=== PATIENT | male | born 1955 | race Caucasian/White ===

== ENCOUNTER → 2023-09-30 12:12 | Outpatient (REF) | payer MEDICARE, OTHER, SELFPAY | LOC: HWRAD 12:12 | PROVIDERS: ATTENDING PHYSICIAN Nurse Practitioner Adult Health; FAMILY PHYSICIAN Family Medicine | DX: F17.210 Nicotine dependence, cigarettes, uncomplicated (principal) | CPT/HCPCS: 71271 ==

== ENCOUNTER → 2024-01-13 11:18 | Outpatient (REF) | payer MEDICARE, OTHER, SELFPAY | LOC: HWRAD 11:18 | PROVIDERS: ATTENDING PHYSICIAN Internal Medicine Critical Care Medicine; FAMILY PHYSICIAN Family Medicine | DX: R91.1 Solitary pulmonary nodule (principal) | CPT/HCPCS: 71250 ==

== ENCOUNTER 2024-08-11 14:47 | Inpatient (IN) | payer MEDICARE, OTHER, SELFPAY ==
[2024-08-11] VITALS (13 sets, daily range): BP systolic 122–168; BP diastolic 70–95; BMI 26.1
--- NOTE | 2024-08-11 11:01 | ED.GENMED ---
History of Present Illness
General
Chief Complaint: Breathing Problem
Source: patient
Exam Limitations: none
Time Seen by Provider: 08/11/24 10:11
Nursing documentation reviewed up to this point in time: agreed with
History of Present Illness
History of Present Illness:
Patient with history of COPD and current smoker, presents ED secondary to worsening cough and shortness of breath over the past 2 weeks, along with decreased appetite. As patient has had pneumonia in the past, spoke with primary care physician who
prescribed antibiotics last week, which he has taken along with prednisone, without improvement in symptoms. Patient reports intermittent fever up to 101. Denies chest pain. Denies back pain. Denies leg pain or swelling. Denies headache.
Denies nausea, vomiting, or diarrhea. Denies recent travel.
Past History
Past History
ED Past Medical History: COPD; Negative CAD or HTN
ED Past Surgical History: None
Social History
Tobacco: Smoker
Alcohol: Occasional
Drug: None
Personal: Single
Living: with family
Review of Systems
Review of Systems
Allergies reviewed?: Yes
All Other Systems: ROS reviewed and negative except as documented in HPI and ROS
Constitutional: Reports fever
EENT: Reports no symptoms
Respiratory: Reports cough and trouble breathing
Cardiac: Reports no symptoms
ABD/GI: Reports no symptoms
Musculoskeletal: Reports no symptoms
Skin: Reports no symptoms
Neurological: Reports no symptoms
Phy Exam
Physical Exam
Physical Exam:
Physical Exam
General: moderate respiratory distress, acutely ill. afebrile
Head: nc/at. eomi
Neck: supple. normal range of motion.
Heart: s1/s2 regular rate and rhythm, no murmur.
Lungs: moderate respiratory distress. diffuse wheezing bilaterally
Abdomen: normal bowel sounds. not tender.
Neuro: alert and oriented x 3. no focal neurological deficits
Skin: no rash
Psychiatric: well kept. interactive and cooperative
Extremities: no edema. no calf tenderness.
Scores
Heart Failure Risk
Heart Failure Risk Score: Not Applicable
Sepsis
Sepsis Screening
Sepsis Assessment: Sepsis
Sepsis Screen
Sepsis Screen: Sepsis
Date: 08/11/24
Time: 17:08
Course
Orders/Labs/Results
Orders:
Orders
08/11/24 10:05
Electrocardiogram (*1) Urgent
Reason for Study: Shortness of Breath
EKG- Treatment ONCE
08/11/24 10:52
CR Chest - 2 Views Urgent
Comment:
Reason For Exam: cough/sob
08/11/24 10:54
0.9% Sodium Chloride 500 ml [Nss] 500 ml IV BOLUS
Albuterol Nebs [Ventolin Nebules] 2.5 mg INH R NOW STA
Guaifenesin/Codeine Solution [Robitussin AC] 10 ml PO NOW STA
Ipratropium/Albuterol Sulfate [Duoneb] 3 ml INH R NOW STA
08/11/24 11:02
COVID-19 Antigen Urgent
Source: Nasal Swab
Complete Blood Count/With Diff Urgent
Comprehensive Metabolic Panel Urgent
Lactic Acid Q4H
Comment: CANCEL 2nd LACTIC ACID IF 1st LACTIC ACID IS LESS THAN 2
Magnesium Urgent
Influenza A+B Rapid Molecular Urgent
LO Source: Nasal Swab
Specimen Description:
Respiratory Syncytial Virus Urgent
LO Source: Nasal Swab
Specimen Description:
Date Specimen was Collected: 08/11/24
Time Specimen was Collected: 10:56
08/11/24 11:04
Dexamethasone Sod Phosphate [Decadron] 6 mg IV NOW STA
08/11/24 14:10
Admit/Transfer Patient As Directed
Co-Sign Provider:
Level of Care: Inpatient admission
Assign to:: Medical/Surgical
Physician / Group: [facility]
Diagnosis: FLu A+, copd exacerbation with PNa and hypoxia
Reason for Hospitalization: FLu A+, copd exacerbation with PNa and hypoxia
Expected length of stay greater than two midnights?: Yes
ELOS- Estimated Length of Stay in days: 5
I certify the patient meets the requirements for IP care: Yes
Code Status As Directed
Resuscitation Status: Full Code
08/11/24 14:17
PRN Pain Medication Management As Directed
May give lesser potent ordered pain med per pt: Yes
preference::
Protocol:: Medication orders for pain may be administered in a
manner that supports deferring to patient preference
when the pt is:
- Requesting an ordered lesser potent pain medication.
Least to most potent pain medications are defined
as: acetaminophen < NSAID < tramadol < opioids
(morphine, oxycodone, hydromorphone).
- Requesting a lesser dose of the same medication IF
ORDERED.
- Requesting a less intrusive route of administration
if both routes are prescribed by the provider (PO <
IV).
08/11/24 15:26
Respiratory Culture/Gram Stain Urgent
LO Source: Sputum
Specimen Description:
Date Specimen was Collected: 08/11/24
Time Specimen was Collected: 15:09
Abnormal Lab Results
08/11/24
11:02
RBC 4.56 L 10^6/uL
(4.70-6.10)
MCH 32.0 H pg
(27.0-31.0)
Abs Immat Gran (auto) 0.1 H 10^3/uL
(0-0.05)
Absolute Monos (auto) 1.5 H 10^3/uL
(0.1-0.6)
Immature Gran % 0.9 H %
(0-0.5)
Lymphocytes % 12.6 L %
(20.5-51.1)
Monocytes % 15.8 H %
(1.7-9.3)
Glucose 101 H mg/dl
(70-99)
08/11/24 11:02
08/11/24 11:02
Vital Signs
Initial and Last Documented VS:
Initial Vital Signs
Temp Pulse Resp BP Pulse Ox
100 F 111 30 135/95 90
08/11/24 09:46 08/11/24 09:46 08/11/24 09:46 08/11/24 09:46 08/11/24 09:46
Last Documented Vital Signs
Temp Pulse Resp BP Pulse Ox
97.6 F 83 15 132/82 96
08/11/24 13:46 08/11/24 16:45 08/11/24 16:45 08/11/24 16:00 08/11/24 16:45
MDM/Problems Addressed
MDM/Problems Addressed:
History and exam consistent with likely COPD exacerbation from influenza. Pulse ox improved on 2 L of oxygen via nasal cannula. Patient will be admitted for further evaluation and treatment, including continual nebulizer treatment along with IV
steroids
*Critical Care Note
Total Time (30-74mins, 75-104mins- exclusive of procedures): Not Applicable
ED Attending Note
-
Portions of this chart may have been created with voice recognition software.� Occasional wrong word or��sound alike� substitutions may have occurred due to the inherent limitations of voice recognition software.
Discharge Plan
Departure
Patient Disposition: Admit
Date of Disposition: 08/11/24
Time of Disposition: 12:15
Admit to: IMU
Presentation/result/management discussed w/ accepting MD/DO: Hospitalist
Discharge Problem:
Influenza, COPD exacerbation
Interventions
Interventions:
*Risk Screen - Suicide Last Done: 08/11/24 09:46
*General Assessment Last Done: 08/11/24 09:46
*Neglect/Abuse Screening Last Done: 08/11/24 09:46
ED- Fall Risk Assessment Last Done: 08/11/24 11:29
*ED COVID-19 Vaccine History Last Done: 08/11/24 09:46
*Nursing Disposition Last Done: 08/11/24 16:47
ED- Cardiac Assessment Last Done: 08/11/24 11:29
ED- Pulmonary Assessment Last Done: 08/11/24 11:29
[2024-08-11] MEDS: DUONEB 3 ML INH ×2 (11:17→21:01)
[2024-08-11] MEDS: VENTOLIN NEBULES 2.5 MG INH (11:17)
[2024-08-11] MEDS: DECADRON 6 MG IV (11:18)
[2024-08-11] MEDS: NSS 500 IV (11:19)
[2024-08-11] MEDS: ROBITUSSIN AC 10 ML PO (11:19)
[2024-08-11 11:20] LABS: % Basophils 0.3 % (0-2); % Immature Granulocytes 0.9 % (0-0.5); % Lymphocytes 12.6 % (20.5-51.1); % Monocytes 15.8 % (1.7-9.3); % Neutrophils 70.4 % (42.2-75.2); Absolute Immature Granulocytes 0.1 10^3/uL (0-0.05); Absolute Lymphocytes 1.2 10^3/uL (1.2-3.4); Absolute Monocytes 1.5 10^3/uL (0.1-0.6); Absolute Neutrophils 6.5 10^3/uL (1.4-6.5); Hematocrit 42.4 % (39.0-52.0); Hemoglobin 14.6 g/dL (13.0-18.0); Mean Corp Hgb Conc. 34.4 g/dL (33.0-37.0); Mean Platelet Volume 9.9 fL (7.4-10.4); Nucleated Red Blood Cells % 0 % (-); Platelet Count 165 10^3/uL (130-400); Red Blood Cell Count 4.56 10^6/uL (4.70-6.10); Red Cell Dist. Width 12.1 % (11.5-14.5); White Blood Cell Count 9.3 10^3/uL (4.8-10.8)
[2024-08-11 11:31] LABS: Lactic Acid 1.2 mmol/L (0.7-2.0)
[2024-08-11 11:37] LABS: COVID-19 Antigen Negative (Negative)
[2024-08-11 11:40] LABS: ALT (SGPT) 26 U/L (0-50); AST (SGOT) 27 U/L (17-59); Albumin 3.6 g/dl (3.5-5.0); Alkaline Phosphatase 115 U/L (38-126); Blood Urea Nitrogen 17 mg/dl (9-20); Calcium 9.2 mg/dl (8.4-10.2); Carbon Dioxide 29 mmol/L (22-30); Chloride 101 mmol/L (98-107); Estimated Creatinine Clearance 109 ml/min; Glucose 101 mg/dl (70-99); Potassium 3.9 mmol/L (3.5-5.1); Sodium 139 mmol/L (135-145); Total Bilirubin 0.6 mg/dl (0.2-1.3); Total Protein 6.5 g/dl (6.3-8.2); eGFR > 60.00
--- NOTE | 2024-08-11 11:53 | EDRN ---
the pt was received from the waiting room, this RN entered the pts room and the pt was 92% on 2L NC, this RN notified the provider and titrated 02 up to 4L NC and Sp02 came up to 98%, the pt has c/o SOB, PIV placed and labs were obtained and swabs
obtained, the pt was assisted into pt gown, the pts sons are currently at the pts bedside, Dr. Livingston was at the pts bedside speaking to the pt and the pts sons, the pt denies needing anything at this time, will continue to monitor the pt closely
--- NOTE | 2024-08-11 13:31 | HPS.HSE ---
Family Physician
-
Family Physician: Rasta Carmona
Chief Complaint
-
Cough x 2 weeks, intermittent fever, smoker
History of Present Illness
68-year-old male complaining of worsening cough and shortness of breath over the past 2 weeks along with decreased appetite. Today he was unable to get off the sofa and walk due to significant shortness of breath so he decided to come to the ER. He
states in the winter he always gets some kind of fluid with COPD exacerbation or pneumonia. He states he was seen by his PCP who prescribed Zithromax last week which he has been taking along with prednisone without any improvement in symptoms. He
reports he took 500mg then 250 mg x2 doses and then 40 mg of prednisone x 2 days and one 30 mg dose. He reports intermittent fevers up to 101F. He has history of COPD and is a current smoker 1 pack/day, however he states he is smoked about 3 to 4
cigarettes a day since being sick He denies sore throat, headache, recent travel, chest pain, palpitations, abdominal pain, nausea, vomiting, diarrhea, urinary symptoms. He has past medical history of COPD, Pulmonary nodulesactive smoker, erectile
dysfunction, HLD, anxiety.
Medical History
Past Medical History
Past Medical History: Reports Other
Additional Past Medical History:
COPD
Pulmonary nodules
active smoker
erectile dysfunction
HLD,
anxiety
Past Surgical History: Reports Other
Additional Past Surgical History:
Skin CA removal
Social History
Tobacco: Former Smoker (1ppd x 55 years )
Alcohol: Occasional
Drug: None
Personal:
Living: With Family
Employment: Employed (owns [employer] )
Family History
Family History: Other (mother age 49 unknown cancer, sister age 49 unknown ca, sister melanoma age 64 , father age 84 FTT)
Allergies / Home Medications
Allergies reflects when Allergies were last updated in [employer].
Home Medications with original date entered in [employer]
Allergy/Medication List:
Allergies
Allergy/AdvReac Type Severity Reaction Status Date / Time
No Known Allergies Allergy Verified 01/13/20 10:44
Home Medications
atorvastatin 20 mg tablet 20 mg PO DAILY 01/13/20
azithromycin 250 mg tablet 250 mg PO PER PKG DIR 08/11/24
fluticasone 250 mcg-salmeterol 50 mcg/dose blistr powdr for inhalation 1 inh inhalation R DAILY 08/11/24
lorazepam 0.5 mg tablet 0.5 mg PO DAILYPRN PRN anxiety 08/11/24
prednisone 10 mg tablet 10 mg PO .TAPER 08/11/24
sildenafil 100 mg tablet 100 mg PO DAILYPRN PRN ED 08/11/24
Review of Systems
-
History Source: Patient
A 12 point ROS was completed and negative except as noted: Yes
Constitutional: Reports Fever, Fatigue and Chills
EENT: Reports Sore Throat; Denies Mouth Pain, Mouth Swelling or Runny Nose
Respiratory: Reports Cough and Trouble Breathing (Wheezing)
Cardiac: Denies Chest Pain, Diaphoresis, Palpitations or Syncope
Abdomen/GI: Denies Abdominal Pain, Nausea, Vomiting, Diarrhea, Constipated, Bloody Stools or Black Stools
: Denies Dysuria, Frequency, Flank Pain, Incontinence or Difficulty Voiding
Musculoskeletal: Denies Joint Pain, Joint Swelling or Edema
Skin: Denies Itching or Rash
Neurological: Reports Weakness (generalized ); Denies Dizzy or Headache
Endocrine: Reports No Symptoms
Hematologic/Lymphatic: Reports No Symptoms
Psych: Reports Calm
Physical Exam
Vital Signs
Vital Signs
Temp Pulse Resp BP Pulse Ox
98.5 F 112 26 132/75 95
08/11/24 11:29 08/11/24 12:21 08/11/24 12:21 08/11/24 12:21 08/11/24 12:21
Physical Exam
General: Comfortable and Conversant; No Pain, Fever or Chills
HEENT: NormoCephalic, Anicteric, Moist mucous membranes, PERRLA, [place] Conjunctivae, No Ptosis and Oxygen (4 liters nc)
Respiratory: Clear (post neb treatment); No Wheezes, Rales or Rhonchi
Cardiac: S1/S2 and Regular Rhythm; No Murmur, Rub, Gallop or Peripheral Edema
Breast: Deferred by me
GI: Soft, Non Tender, Non Distended, Normal Bowel Sounds and No Hepatosplenomegaly
Rectal: Deferred by Provider
Genito-urinary: Deferred by me
Musculoskeletal: No Clubbing, No Cyanosis and No Edema
Skin: Warm and Dry; No Rash or Jaundice
Neuro: AO x 3, No Motor Deficits, Nonfocal/grossly intact, Cranial Nerves Intact and No Sensory Deficits; No Slurred Speech, Facial Droop, Tremors or Sedated
Psych: Calm
Laboratory Results
-
08/11/24 11:02
08/11/24 11:02
Laboratory Results
Lactic Acid Cancelled 08/11/24 15:00
Total Bilirubin 0.6 mg/dl (0.2-1.3) 08/11/24 11:02
AST 27 U/L (17-59) 08/11/24 11:02
ALT 26 U/L (0-50) 08/11/24 11:02
Alkaline Phosphatase 115 U/L (38-126) 08/11/24 11:02
Impression/Plan
-
Impression/plan:
Admit to MedSurg
#Acute hypoxic respiratory insufficiency secondary to Influenza A positive
# Acute on chronic Viral induced COPD exacerbation 2/2 to above
#Bilat lower lobe PNA 2/2 to Flu A
-90% RA, 95% 4L NC
11 days symptoms(out of window for Tamiflu)
-Droplet precautions for influenza A
-IV Decadron 6 mg given in ER will continue IV Decadron 4 mg every 8 hours
-DuoNebs scheduled and as needed
-IV Zithromax daily( pt took 500mg then 250 mg x2 doses)
-prn guaifenesin with codeine
-Tylenol as needed
-sputum culture
-Will need PT walking pulse ox before discharge require home O2
CXR:
1. SEVERE BILATERAL CENTRILOBULAR EMPHYSEMA with moderate bilateral lung hyperinflation.
2. Small solid pulmonary nodules in the upper lobes of both lungs which appear unchanged in size.
3. Mild opacity in the posterior and lateral basilar segments of both lower lobes. Diagnostic possibilities are (1) mild pneumonia or (2) mild subsegmental atelectasis/scarring.
# Known small solid pulmonary nodules in the upper lobes of both lungs which appear unchanged in size.
#Active smoker
1 pack/day
-Cessation advised
#HLD
-Continue atorvastatin 20 mg daily
#Anxiety
-Continue lorazepam 0.5 mg daily as needed
#Erectile dysfunction
-Hold current sildenafil 100 mg as needed
DVT prophylaxis
-Subcu Lovenox
Full code
--- NOTE | 2024-08-11 13:46 | EDRN ---
Karen Durant LEATHER TOGGLER currently at the pts bedside
--- NOTE | 2024-08-11 14:17 | W.PN.UPDATE ---
Update Note
Progress Note Update
This is an addendum to the H&P written by Karen Durant on 08/11/2024. Patient seen and examined dependently with N[employer] ENGINEER.
68-year-old male past medical history of COPD, hyperlipidemia, anxiety, erectile dysfunction, active smoker, presenting with shortness of breath and worsening cough for 2 weeks with intermittent fevers. He was prescribed azithromycin and
prednisone.
Currently tachycardic. Currently on 4 L oxygen. Chest x-ray shows severe bilateral centrilobular emphysema moderate bilateral lung hyperinflation. Small solid pulmonary nodules. Mild the past in the posterior/lateral basal segments of both lower
lobes consistent with pneumonia/atelectasis/scarring.
Patient is positive for influenza A. He is well out of the window to benefit from Tamiflu.
Initially found to have wheezing on examination. Took azithromycin for 3 days so far, will continue azithromycin 2 more day course. Patient likely has influenza pneumonia/influenza induced acute bronchitis/COPD exacerbation. Dexamethasone and
DuoNebs for influenza induced COPD exacerbation.
--- NOTE | 2024-08-11 15:29 | EDRN ---
respiratory culture obtained and sent, the pt is using the urinal to pee, the pt is resting in stretcher in the lowest position, side rails up x2, call aj within reach, HOB elevated, no s/s of distress, the pt is currently still on 4L NC Sp02 95%,
the pt denies needing anything at this time, will continue to monitor the pt closely
--- NOTE | 2024-08-11 17:40 | PTCARENOTE ---
08/11- Patient transferred and oriented to unit without issue. AAOX3; 97% on 4L O2, GIVENS; Skin CDI. Patient denies any needs at this time.
[2024-08-11] MEDS: DUONEB INH (18:13)
[2024-08-11] MEDS: LOVENOX 40 MG SC (18:30)
[2024-08-11] MEDS: ZITHROMAX 252.5 MG IV (18:30)
[2024-08-11] MEDS: NSS 1000 IV (18:33)
[2024-08-11] MEDS: TYLENOL 650 MG PO (20:57)
[2024-08-11] MEDS: DECADRON 4 MG IV (20:59)
[2024-08-12] MEDS: DECADRON 4 MG IV ×3 (04:29→19:19)
[2024-08-12] MEDS: NSS 1000 IV ×2 (04:29→16:42)
[2024-08-12] MEDS: DUONEB 3 ML INH ×3 (07:14→15:15)
[2024-08-12 07:30] VITALS: BP 161/80
[2024-08-12 10:56] VITALS: O2SAT 95
[2024-08-12 10:58] VITALS: O2SAT 94
[2024-08-12 12:46] LABS: Hematocrit 40.9 % (39.0-52.0); Mean Corp Hgb Conc. 34.2 g/dL (33.0-37.0); Mean Corpuscular Hgb 31.8 pg (27.0-31.0); Platelet Count 154 10^3/uL (130-400); Red Cell Dist. Width 12.2 % (11.5-14.5); White Blood Cell Count 12.5 10^3/uL (4.8-10.8)
[2024-08-12 12:47] LABS: ALT (SGPT) 29 U/L (0-50); AST (SGOT) 28 U/L (17-59); Albumin 3.5 g/dl (3.5-5.0); Alkaline Phosphatase 109 U/L (38-126); Blood Urea Nitrogen 17 mg/dl (9-20); Calcium 9.1 mg/dl (8.4-10.2); Carbon Dioxide 26 mmol/L (22-30); Chloride 104 mmol/L (98-107); Estimated Creatinine Clearance > 125 ml/min; Glucose 169 mg/dl (70-99); Potassium 3.8 mmol/L (3.5-5.1); Sodium 139 mmol/L (135-145); Total Bilirubin 0.4 mg/dl (0.2-1.3); Total Protein 6.2 g/dl (6.3-8.2); eGFR > 60.00
[2024-08-12 14:09] LABS: % Basophils 0.3 % (0-2); % Immature Granulocytes 1.8 % (0-0.5); % Lymphocytes 8.7 % (20.5-51.1); % Monocytes 6.9 % (1.7-9.3); % Neutrophils 82.3 % (42.2-75.2); Absolute Immature Granulocytes 0.2 10^3/uL (0-0.05); Absolute Lymphocytes 1.1 10^3/uL (1.2-3.4); Absolute Monocytes 0.9 10^3/uL (0.1-0.6); Absolute Neutrophils 10.3 10^3/uL (1.4-6.5); Nucleated Red Blood Cells % 0 % (-)
--- NOTE | 2024-08-12 14:48 | W.PN.HOSP.TC ---
Today's Communication/Plan
-
duonebs
steroids
incentive kaia
sputum cultures
abx
wean o2 as tolerated
Assessment / Plan
Assessment / Plan
Physical Exam
General: Comfortable and Conversant; No Pain, Fever or Chills
HEENT: NormoCephalic, Anicteric, Moist mucous membranes, PERRLA, [place] Conjunctivae, No Ptosis and Oxygen (4 liters nc)
Respiratory: Exp wheezing; no Rales or Rhonchi
Cardiac: S1/S2 and Regular Rhythm; No Murmur, Rub, Gallop or Peripheral Edema
Breast: Deferred by me
GI: Soft, Non Tender, Non Distended, Normal Bowel Sounds and No Hepatosplenomegaly
Rectal: Deferred by Provider
Genito-urinary: Deferred by me
Musculoskeletal: No Clubbing, No Cyanosis and No Edema
Skin: Warm and Dry; No Rash or Jaundice
Neuro: AO x 3, No Motor Deficits, Nonfocal/grossly intact, Cranial Nerves Intact and No Sensory Deficits; No Slurred Speech, Facial Droop, Tremors or Sedated
Psych: Calm
#Acute hypoxic respiratory insufficiency secondary to Influenza A and +/- Pneumonia
#Bilat lower lobe PNA 2/2 to Flu A
11 days symptoms(out of window for Tamiflu)
-Droplet precautions for influenza A
-cont iv steroids
-DuoNebs scheduled and as needed
-Levofloxacin
-prn guaifenesin with codeine
-Tylenol as needed
-sputum culture
-Will need PT walking pulse ox before discharge require home O2
# Known small solid pulmonary nodules in the upper lobes of both lungs which appear unchanged in size.
#Active smoker
1 pack/day
-Cessation advised
#HLD
-Continue atorvastatin 20 mg daily
#Anxiety
-Continue lorazepam 0.5 mg daily as needed
#Erectile dysfunction
-Hold current sildenafil 100 mg as needed
DVT prophylaxis
-Subcu Lovenox
Full code
Anticipated Discharge: > 48 hours
Subjective/Interval History
-
Date of Service: August 12, 2024
No acute events overnight, still desaturating to the mid 70s on room air at rest
Objective Data
-
Labs:
Laboratory Results
08/12/24
12:03
WBC 12.5 H
Hgb 14.0
Hct 40.9
Plt Count 154
Sodium 139
Potassium 3.8
Chloride 104
Carbon Dioxide 26
BUN 17
Creatinine 0.6 L
Glucose 169 H
Calcium 9.1
Total Bilirubin 0.4
AST 28
ALT 29
Alkaline Phosphatase 109
Vital Signs:
Vital Signs
Temp Pulse Resp BP Pulse Ox
97.9 F 63 18 161/80 92
08/12/24 07:30 08/12/24 11:12 08/12/24 11:12 08/12/24 07:30 08/12/24 11:12
I&O
08/11/24 08/12/24 08/13/24
06:59 06:59 06:59
Intake Total 1200 / 1200
Output Total 400 / 400
Balance 800 / 800
Review of Systems
-
History Source: Patient
All other systems: Not reviewed unless documented
Data Reviewed
-
Diagnostic Radiology: Report Reviewed by me
Labs: Labs Reviewed by me
--- NOTE | 2024-08-12 15:58 | CM ---
respiratory manager reviewed patient's chart and met with patient and patient lives alone in a one story home, patient is independent with adl's and ambulation, no dme, patient drives, patient was on 4 liters of oxygen and is now down to one liter.
PCP; Dr Carmona
Pharmacy [facility]
Plan; Home when stable, watch for home oxygen.
[2024-08-12] MEDS: LOVENOX 40 MG SC (16:42)
[2024-08-12] MEDS: LEVAQUIN 150 IV (16:42)
[2024-08-12 16:48] VITALS: BP 165/69
[2024-08-12] MEDS: DUONEB INH (19:50)
[2024-08-12] MEDS: ATIVAN 0.5 MG PO (20:25)
[2024-08-12 23:26] VITALS: BP 163/72
[2024-08-13] MEDS: NSS 1000 IV (00:37)
[2024-08-13] MEDS: DECADRON 4 MG IV ×3 (04:43→23:34)
[2024-08-13] MEDS: DUONEB 3 ML INH ×4 (07:23→19:16)
[2024-08-13 07:50] VITALS: BP 188/86
[2024-08-13 09:04] LABS: Hematocrit 41.4 % (39.0-52.0); Hemoglobin 14.3 g/dL (13.0-18.0); Mean Corp Hgb Conc. 34.5 g/dL (33.0-37.0); Mean Corpuscular Volume 92.6 fL (80.0-94.0); Mean Platelet Volume 10.1 fL (7.4-10.4); Platelet Count 172 10^3/uL (130-400); Red Blood Cell Count 4.47 10^6/uL (4.70-6.10); Red Cell Dist. Width 12.3 % (11.5-14.5); White Blood Cell Count 19.9 10^3/uL (4.8-10.8)
[2024-08-13] MEDS: ZESTRIL 10 MG PO (09:41)
[2024-08-13 09:54] LABS: ALT (SGPT) 27 U/L (0-50); AST (SGOT) 26 U/L (17-59); Albumin 3.4 g/dl (3.5-5.0); Alkaline Phosphatase 116 U/L (38-126); Blood Urea Nitrogen 14 mg/dl (9-20); Calcium 9.2 mg/dl (8.4-10.2); Carbon Dioxide 26 mmol/L (22-30); Chloride 102 mmol/L (98-107); Estimated Creatinine Clearance 109 ml/min; Glucose 123 mg/dl (70-99); Potassium 4.1 mmol/L (3.5-5.1); Sodium 138 mmol/L (135-145); Total Bilirubin 0.5 mg/dl (0.2-1.3); Total Protein 6.1 g/dl (6.3-8.2); eGFR > 60.00
[2024-08-13] MEDS: ZESTRIL PO (10:47)
--- NOTE | 2024-08-13 11:28 | CM ---
Chart reviewed and patient is for discharge to home when stable, patient is currently requiring one liter of oxygen and plan is to continue to wean oxygen.
Plan; Home when stable.
[2024-08-13 11:31] LABS: % Basophils 0.3 % (0-2); % Immature Granulocytes 3.1 % (0-0.5); % Lymphocytes 10.8 % (20.5-51.1); % Monocytes 4.8 % (1.7-9.3); Absolute Basophils 0.1 10^3/uL (0-0.2); Absolute Immature Granulocytes 0.6 10^3/uL (0-0.05); Absolute Lymphocytes 2.1 10^3/uL (1.2-3.4); Absolute Neutrophils 16.1 10^3/uL (1.4-6.5); Nucleated Red Blood Cells % 0 % (-)
[2024-08-13 12:54] VITALS: BP 162/97
--- NOTE | 2024-08-13 14:58 | PN.CDI ---
CDI
- -
CDI:
Physician Documentation Request
Admit Date: 08/11/24 14:47
Dear Doctor Tabitha,
Patient admitted influenza A
ED note, 'Patient reports intermittent fever up to 101.'
1/2 PN, 'Bilat lower lobe PNA 2/2 to Flu A....-Levofloxacin .'
On admission, HR> 90 and RR> 20.
Please clarify which of the following most accurately describes the status of the patient's infection:
Sepsis, POA
Flu A and pneumonia only
Other
Sepsis
- Systemic manifestations of infection, with 2 or more SIRS criteria which include:
- Fever >100.4 degrees F or hypothermia < 96.8 degrees F
- Leukocytosis - WBC > 12,000 or leukopenia - WBC < 4,000 or > 10% bands
- Tachycardia > 90 beats per minute
- Tachypnea - RR > 20 breaths per minute or PaCO2 , 32mmHg
Source: Merck Manual 2013
- Indicate the known or suspected organism
- Indicate the known or suspected underlying infection, such as pneumonia
Localized Infection Only, Without Systemic Illness
- indicate the site/source, such as pneumonia
Other
Unable to Determine
Use of terms such as suspected, likely, concern for, or probable (associated with a specific diagnosis that is being evaluated, monitored, or treated as if it exists) are acceptable and can be coded in the inpatient setting, when documented at the
time of discharge.
Thank you,
Lucy LOWE,RN,CCDS
CDI Specialist
Available via [place] text
Please use your independent medical judgment in providing your response.
--- NOTE | 2024-08-13 15:37 | W.PN.HOSP.TC ---
Today's Communication/Plan
-
wean steroids
switch to unasyn
duonebs
wean o2
incentive kaia
Assessment / Plan
Assessment / Plan
Physical Exam
General: Comfortable and Conversant; No Pain, Fever or Chills
HEENT: NormoCephalic, Anicteric, Moist mucous membranes, PERRLA, [place] Conjunctivae, No Ptosis and Oxygen (4 liters nc)
Respiratory: Exp wheezing - improved from yesterday; no Rales or Rhonchi
Cardiac: S1/S2 and Regular Rhythm; No Murmur, Rub, Gallop or Peripheral Edema
Breast: Deferred by me
GI: Soft, Non Tender, Non Distended, Normal Bowel Sounds and No Hepatosplenomegaly
Rectal: Deferred by Provider
Genito-urinary: Deferred by me
Musculoskeletal: No Clubbing, No Cyanosis and No Edema
Skin: Warm and Dry; No Rash or Jaundice
Neuro: AO x 3, No Motor Deficits, Nonfocal/grossly intact, Cranial Nerves Intact and No Sensory Deficits; No Slurred Speech, Facial Droop, Tremors or Sedated
Psych: Calm
#Acute hypoxic respiratory insufficiency secondary to Influenza A and + H. Influzena Pneumonia
#Bilat lower lobe PNA 2/2 to Flu A + H. Influenza Pneumonia
11 days symptoms(out of window for Tamiflu)
-Droplet precautions for influenza A
-cont iv steroids - wean today
-DuoNebs scheduled and as needed
-Switch to Unasyn
-prn guaifenesin with codeine
-Tylenol as needed
-Will need PT walking pulse ox before discharge require home O2
# Known small solid pulmonary nodules in the upper lobes of both lungs which appear unchanged in size.
#Essential hypertension
� Started lisinopril
� Hydralazine IV as needed
#Active smoker
1 pack/day
-Cessation advised
�States he will stop
� Refused nicotine
#HLD
-Continue atorvastatin 20 mg daily
#Anxiety
-Continue lorazepam 0.5 mg daily as needed
#Erectile dysfunction
-Hold current sildenafil 100 mg as needed
DVT prophylaxis
-Subcu Lovenox
Full code
Anticipated Discharge: 24 - 48 hours
Subjective/Interval History
-
Date of Service: August 13, 2024
feels better
Objective Data
-
Labs:
Laboratory Results
08/13/24
07:39
WBC 19.9 H
Hgb 14.3
Hct 41.4
Plt Count 172
Sodium 138
Potassium 4.1
Chloride 102
Carbon Dioxide 26
BUN 14
Creatinine 0.7
Glucose 123 H
Calcium 9.2
Total Bilirubin 0.5
AST 26
ALT 27
Alkaline Phosphatase 116
Vital Signs:
Vital Signs
Temp Pulse Resp BP Pulse Ox
96.3 F L 80 16 162/97 97
08/13/24 07:50 08/13/24 11:14 08/13/24 11:14 08/13/24 12:54 08/13/24 11:14
I&O
08/12/24 08/13/24 08/14/24
06:59 06:59 06:59
Intake Total 1200 / 1200 2640 / 2640
Output Total 400 / 400
Balance 800 / 800 2640 / 2640
Review of Systems
-
History Source: Patient
All other systems: Not reviewed unless documented
Data Reviewed
-
Diagnostic Radiology: Report Reviewed by me
Labs: Labs Reviewed by me
[2024-08-13 15:40] VITALS: BP 181/94
[2024-08-13 15:57] VITALS: BP 181/94; PULSE 102; O2SAT 93
[2024-08-13] MEDS: UNASYN IV (17:09)
[2024-08-13] MEDS: LOVENOX SC (17:20)
[2024-08-13] MEDS: ATIVAN 0.5 MG PO (22:13)
[2024-08-14] VITALS: BP 174/109
[2024-08-14] MEDS: UNASYN IV ×4 (00:34→18:42)
[2024-08-14] MEDS: DUONEB 3 ML INH ×4 (07:17→20:51)
[2024-08-14 07:50] VITALS: BP 178/90
[2024-08-14 08:48] LABS: Hematocrit 38.8 % (39.0-52.0); Hemoglobin 13.5 g/dL (13.0-18.0); Mean Corp Hgb Conc. 34.8 g/dL (33.0-37.0); Mean Corpuscular Volume 91.9 fL (80.0-94.0); Mean Platelet Volume 9.7 fL (7.4-10.4); Platelet Count 168 10^3/uL (130-400); Red Blood Cell Count 4.22 10^6/uL (4.70-6.10); Red Cell Dist. Width 12.3 % (11.5-14.5); White Blood Cell Count 13.5 10^3/uL (4.8-10.8)
[2024-08-14] MEDS: ZESTRIL 10 MG PO ×2 (09:03→15:34)
[2024-08-14 09:34] LABS: ALT (SGPT) 26 U/L (0-50); AST (SGOT) 25 U/L (17-59); Albumin 3.1 g/dl (3.5-5.0); Alkaline Phosphatase 94 U/L (38-126); Blood Urea Nitrogen 18 mg/dl (9-20); Calcium 8.8 mg/dl (8.4-10.2); Carbon Dioxide 29 mmol/L (22-30); Chloride 100 mmol/L (98-107); Estimated Creatinine Clearance 109 ml/min; Glucose 125 mg/dl (70-99); Potassium 3.9 mmol/L (3.5-5.1); Sodium 138 mmol/L (135-145); Total Bilirubin 0.8 mg/dl (0.2-1.3); Total Protein 5.7 g/dl (6.3-8.2); eGFR > 60.00
[2024-08-14 10:16] LABS: Absolute Neutrophils -Man Diff 9.8 10^3/uL (1.4-6.5); Atypical Lymphocytes 7 %; Band Neutrophils 3 % (0-3); Lymphocytes 10 % (20-51); Metamyelocytes 4 % (-); Monocytes 6 % (2-9); Platelets Checked Yes; Segmented Neutrophils 70 % (42-75)
[2024-08-14 10:17] LABS: Normal RBC Morphology Yes; Total Cells Counted 100
--- NOTE | 2024-08-14 10:48 | PTCARENOTE ---
Assumed care of pt from previous nurse. Pt denies pain. Pt's lungs are diminished, occasional cough continues. Pt on 2L's sating at 97%, put down to 1L, will reassess. pt call aj is within reach, pt rings swetha. will cont to monitor.
[2024-08-14] MEDS: DECADRON 4 MG IV (13:15)
--- NOTE | 2024-08-14 14:48 | W.PN.HOSP.TC ---
Today's Communication/Plan
-
home o2 eval
cont abx
cont steroid dosing
Assessment / Plan
Assessment / Plan
Physical Exam
General: Comfortable and Conversant; No Pain, Fever or Chills
HEENT: NormoCephalic, Anicteric, Moist mucous membranes, PERRLA, [place] Conjunctivae, No Ptosis and Oxygen (4 liters nc)
Respiratory: Exp wheezing - improved from yesterday; no Rales or Rhonchi
Cardiac: S1/S2 and Regular Rhythm; No Murmur, Rub, Gallop or Peripheral Edema
Breast: Deferred by me
GI: Soft, Non Tender, Non Distended, Normal Bowel Sounds and No Hepatosplenomegaly
Rectal: Deferred by Provider
Genito-urinary: Deferred by me
Musculoskeletal: No Clubbing, No Cyanosis and No Edema
Skin: Warm and Dry; No Rash or Jaundice
Neuro: AO x 3, No Motor Deficits, Nonfocal/grossly intact, Cranial Nerves Intact and No Sensory Deficits; No Slurred Speech, Facial Droop, Tremors or Sedated
Psych: Calm
#Acute hypoxic respiratory insufficiency secondary to Influenza A and + H. Influzena Pneumonia
#Bilat lower lobe PNA 2/2 to Flu A + H. Influenza Pneumonia
11 days symptoms(out of window for Tamiflu)
-Droplet precautions for influenza A
-cont iv steroids - cont steroid dosing
-DuoNebs scheduled and as needed
-Switch to Unasyn
-prn guaifenesin with codeine
-Tylenol as needed
-Will need PT walking pulse ox before discharge require home O2
# Known small solid pulmonary nodules in the upper lobes of both lungs which appear unchanged in size.
#Essential hypertension
� Started lisinopril
- add amlodipine
� Hydralazine IV as needed
#Active smoker
1 pack/day
-Cessation advised
�States he will stop
� Refused nicotine
#HLD
-Continue atorvastatin 20 mg daily
#Anxiety
-Continue lorazepam 0.5 mg daily as needed
#Erectile dysfunction
-Hold current sildenafil 100 mg as needed
DVT prophylaxis
-Subcu Lovenox
Full code
Anticipated Discharge: Within 24 hours
Subjective/Interval History
-
Date of Service: August 14, 2024
Feels better
Objective Data
-
Labs:
Laboratory Results
08/14/24
08:15
WBC 13.5 H
Hgb 13.5
Hct 38.8 L
Plt Count 168
Sodium 138
Potassium 3.9
Chloride 100
Carbon Dioxide 29
BUN 18
Creatinine 0.7
Glucose 125 H
Calcium 8.8
Total Bilirubin 0.8
AST 25
ALT 26
Alkaline Phosphatase 94
Vital Signs:
Vital Signs
Temp Pulse Resp BP Pulse Ox
97.7 F 88 16 178/90 96
08/14/24 07:50 08/14/24 11:36 08/14/24 11:36 08/14/24 09:03 08/14/24 11:36
I&O
08/13/24 08/14/24 08/15/24
06:59 06:59 06:59
Intake Total 2640 / 2640 960 / 960
Balance 2640 / 2640 960 / 960
Review of Systems
-
History Source: Patient
All other systems: Not reviewed unless documented
Data Reviewed
-
Diagnostic Radiology: Report Reviewed by me
Labs: Labs Reviewed by me
[2024-08-14 15:45] VITALS: BP 161/85
[2024-08-14] MEDS: NORVASC 10 MG PO (16:21)
[2024-08-14] MEDS: LOVENOX SC (18:00)
[2024-08-14] MEDS: ATIVAN 0.5 MG PO (21:55)
[2024-08-14 23:55] VITALS: BP 148/87
[2024-08-15] MEDS: UNASYN IV ×3 (00:15→13:13)
[2024-08-15] MEDS: DECADRON 4 MG IV ×2 (00:15→13:13)
[2024-08-15] MEDS: DUONEB 3 ML INH ×2 (07:41→11:35)
[2024-08-15 07:50] VITALS: BP 149/83
[2024-08-15 08:14] LABS: Hemoglobin 14.6 g/dL (13.0-18.0); Mean Corp Hgb Conc. 34.8 g/dL (33.0-37.0); Mean Corpuscular Hgb 32.5 pg (27.0-31.0); Mean Corpuscular Volume 93.5 fL (80.0-94.0); Platelet Count 204 10^3/uL (130-400); Red Blood Cell Count 4.49 10^6/uL (4.70-6.10); Red Cell Dist. Width 12.2 % (11.5-14.5); White Blood Cell Count 13.7 10^3/uL (4.8-10.8)
[2024-08-15] MEDS: LIPITOR 20 MG PO (08:15)
[2024-08-15] MEDS: ZESTRIL 20 MG PO (08:15)
[2024-08-15] MEDS: NORVASC 10 MG PO (08:16)
[2024-08-15 08:52] LABS: ALT (SGPT) 35 U/L (0-50); AST (SGOT) 28 U/L (17-59); Albumin 3.1 g/dl (3.5-5.0); Alkaline Phosphatase 122 U/L (38-126); Blood Urea Nitrogen 17 mg/dl (9-20); Calcium 8.8 mg/dl (8.4-10.2); Carbon Dioxide 36 mmol/L (22-30); Chloride 99 mmol/L (98-107); Estimated Creatinine Clearance 109 ml/min; Glucose 156 mg/dl (70-99); Sodium 139 mmol/L (135-145); Total Bilirubin 0.5 mg/dl (0.2-1.3); Total Protein 5.9 g/dl (6.3-8.2); eGFR > 60.00
[2024-08-15 09:17] LABS: Nucleated Red Blood Cells % 0 % (-)
[2024-08-15 10:36] LABS: Absolute Neutrophils -Man Diff 9.5 10^3/uL (1.4-6.5); Band Neutrophils 1 % (0-3); Lymphocytes 11 % (20-51); Metamyelocytes 6 % (-); Monocytes 7 % (2-9); Myelocytes 6 % (-); Segmented Neutrophils 69 % (42-75)
[2024-08-15 10:37] LABS: Normal RBC Morphology Yes; Platelets Checked Yes; Total Cells Counted 100
--- NOTE | 2024-08-15 11:15 | CM ---
Per nurse, pt will d/c today w/ home O2 needs (2L)
Home O2 assessment completed yesterday
Spoke w/ pt bedside, agreeable to [facility] as provider
Faxed script, O2 assessment and clinicals sent to [facility] at [phone]
Per Sameera, fax received. Portable will be delivered to the hospital by 1:30 today then home delivery will take place once pt is d/c
IMM reviewed, copy in chart
Pt son will transport at d/c
Plan: Home w/ O2. [employer] is supplier
--- NOTE | 2024-08-15 11:29 | PTCARENOTE ---
Assumed care of pt from previous nurse. Pt to dc today home with home 02. Pt call aj is within reach, pt rings swetha. will cont to monitor.
--- NOTE | 2024-08-15 12:10 | W.PN.HOSP.TC ---
Addendum entered and electronically signed by Devan Lu MD 08/23/24 16:23:
Sepsis
Addendum entered and electronically signed by Devna Lu MD 08/15/24 16:30:
[id number]
Original Note:
Today's Communication/Plan
-
prednisone taper
Augmentin to complete 10 days total
amlodipine
lisinopril
f/u cbc, bmp outpt
f/u pcp, pulmonary outpt
chest imaging in 4-6 weeks or as pulmonary desires
Assessment / Plan
Assessment / Plan
Physical Exam
General: Comfortable and Conversant; No Pain, Fever or Chills
HEENT: NormoCephalic, Anicteric, Moist mucous membranes, PERRLA, [place] Conjunctivae, No Ptosis and Oxygen (4 liters nc)
Respiratory: Exp wheezing - improved from yesterday; no Rales or Rhonchi
Cardiac: S1/S2 and Regular Rhythm; No Murmur, Rub, Gallop or Peripheral Edema
Breast: Deferred by me
GI: Soft, Non Tender, Non Distended, Normal Bowel Sounds and No Hepatosplenomegaly
Rectal: Deferred by Provider
Genito-urinary: Deferred by me
Musculoskeletal: No Clubbing, No Cyanosis and No Edema
Skin: Warm and Dry; No Rash or Jaundice
Neuro: AO x 3, No Motor Deficits, Nonfocal/grossly intact, Cranial Nerves Intact and No Sensory Deficits; No Slurred Speech, Facial Droop, Tremors or Sedated
Psych: Calm
#Acute hypoxic respiratory insufficiency secondary to Influenza A and + H. Influenza Pneumonia
#Bilat lower lobe PNA 2/2 to Flu A + H. Influenza Pneumonia
11 days symptoms(out of window for Tamiflu)
-Droplet precautions for influenza A
-cont iv steroids - cont steroid dosing�continue prednisone taper upon discharge
-DuoNebs scheduled and as needed
-Switch to Unasyn�discharge on Augmentin for additional 9 days to complete 10-day total course
-prn guaifenesin
-Tylenol as needed
-Discharge on 1 L O2 on rest, wean O2 as tolerated outpatient with pulmonary
� Follow-up Dr. Leong, pulmonary outpatient
# Known small solid pulmonary nodules in the upper lobes of both lungs which appear unchanged in size.
-f/u outpt
#Essential hypertension
� Started lisinopril
- add amlodipine
-f/u outpt pcp
� Hydralazine IV as needed
#Active smoker
1 pack/day
-Cessation advised
�States he will stop
� Refused nicotine
-educated on hazards of smoking and o2 and agrees not to smoke anymore
#HLD
-Continue atorvastatin 20 mg daily
#Anxiety
-Continue lorazepam 0.5 mg daily as needed
#Erectile dysfunction
current sildenafil 100 mg as needed
DVT prophylaxis
-Subcu Lovenox
Full code
More than 30 minutes spent in discharge including
Final examination of the patient
Summarizing hospital stay
Instructions for continuing care to all relevant caregivers
Preparation of discharge records, prescriptions, and referral forms
Total time spent (37 in minutes):
Anticipated Discharge: Within 24 hours
Subjective/Interval History
-
Date of Service: August 15, 2024
Feels much better, on 1 L O2
Objective Data
-
Labs:
Laboratory Results
08/15/24
07:51
WBC 13.7 H
Hgb 14.6
Hct 42.0
Plt Count 204 D
Sodium 139
Potassium 5.0 D
Chloride 99
Carbon Dioxide 36 H
BUN 17
Creatinine 0.7
Glucose 156 H
Calcium 8.8
Total Bilirubin 0.5
AST 28
ALT 35
Alkaline Phosphatase 122
Vital Signs:
Vital Signs
Temp Pulse Resp BP Pulse Ox
98 F 101 20 150/88 94
08/15/24 07:50 08/15/24 08:16 08/15/24 07:50 08/15/24 08:16 08/15/24 08:00
I&O
08/14/24 08/15/24 08/16/24
06:59 06:59 06:59
Intake Total 960 / 960 1440 / 1440
Balance 960 / 960 1440 / 1440
Review of Systems
-
History Source: Patient
All other systems: Not reviewed unless documented
Data Reviewed
-
Diagnostic Radiology: Report Reviewed by me
Labs: Labs Reviewed by me
--- NOTE | 2024-08-15 12:14 | W.DS.TRANS ---
DC Summary - [employer]
-
Discharge Instructions:
Discharge Diagnosis/Procedures Acute hypoxic respiratory insufficiency
secondary to Influenza A and + H. Influezena
Pneumonia
Diet Low Cholesterol,Low Fat
Activity As tolerated
Blood Work cbc and bmp in 3-5 days
Others Tests chest imaging in 4-6 weeks or as per pulmonary
Instructions:
Stand-Alone Forms:
Changes to Home Medications: Yes
Discharge Medications:
DC Medications w/original date entered in [employer]
atorvastatin 20 mg tablet 20 mg PO DAILY High Cholesterol 01/13/20
fluticasone 250 mcg-salmeterol 50 mcg/dose blistr powdr for inhalation 1 inh inhalation R DAILY Lung/Breathing Issues 08/11/24
lorazepam 0.5 mg tablet 0.5 mg PO DAILYPRN PRN anxiety 08/11/24
sildenafil 100 mg tablet 100 mg PO DAILYPRN PRN ED 08/11/24
amlodipine 10 mg tablet 10 mg PO DAILY 30 days #30 tabs 08/15/24
amoxicillin 875 mg-potassium clavulanate 125 mg tablet 1 tab PO Q12H 9 days #18 tabs 08/15/24
lisinopril 20 mg tablet 20 mg PO DAILY 30 days #30 tabs 08/15/24
prednisone 10 mg tablet See Rx Instructions .Route .COMPLEX #45 tabs 08/15/24
Home Medication Changes
amlodipine 10 mg tablet 10 mg PO DAILY 30 days #30 tabs 08/15/24
amoxicillin 875 mg-potassium clavulanate 125 mg tablet 1 tab PO Q12H 9 days #18 tabs 08/15/24
lisinopril 20 mg tablet 20 mg PO DAILY 30 days #30 tabs 08/15/24
prednisone 10 mg tablet See Rx Instructions .Route .COMPLEX #45 tabs 08/15/24
Pending Results: No
[2024-08-15 13:19] VITALS: BP 160/96
[2024-08-15] MEDS: DUONEB INH (15:33)
--- NOTE | 2024-08-15 16:49 | PTCARENOTE ---
Pt iv removed, dc paperwork reviewed. Pt home with portable 02, escorted to car son driving, all belongings with pt. no issues noted at discharge
== END 2024-08-15 15:49 | disposition home or self-care (01) | DRG 871 ==
LOC: 4 WEST ACU 14:47
PROVIDERS: Clinical Nurse Specialist Family Health; ADMITTING PHYSICIAN Hospitalist; ATTENDING PHYSICIAN Internal Medicine; EMERGENCY PHYSICIAN Emergency Medicine; FAMILY PHYSICIAN Family Medicine
DX: A41.89 Other specified sepsis (principal); J09.X1 Influenza due to identified novel influenza A virus with pneumonia; J96.01 Acute respiratory failure with hypoxia; J14 Pneumonia due to Hemophilus influenzae; J44.1 Chronic obstructive pulmonary disease with (acute) exacerbation; J44.0 Chronic obstructive pulmonary disease with (acute) lower respiratory infection; I10 Essential (primary) hypertension; F17.210 Nicotine dependence, cigarettes, uncomplicated; N52.9 Male erectile dysfunction, unspecified; E78.5 Hyperlipidemia, unspecified; F41.9 Anxiety disorder, unspecified; Z87.01 Personal history of pneumonia (recurrent); Z80.9 Family history of malignant neoplasm, unspecified; Z11.52 Encounter for screening for COVID-19
CPT/HCPCS: 71046; 80053; 83605; 83735; 85025; 87070; 87077; 87185; 87205; 87502; 87807; 87811; 93005; 94640; 96361; 96374; 97163; 97166; 97530; 99285

== ENCOUNTER → 2024-10-22 12:31 | Outpatient (REF) | payer MEDICARE, OTHER, SELFPAY | LOC: HWRCS 12:31 | PROVIDERS: ATTENDING PHYSICIAN Nurse Practitioner Family; FAMILY PHYSICIAN Family Medicine | DX: R06.09 Other forms of dyspnea (principal) | CPT/HCPCS: 93306 ==

== ENCOUNTER → 2024-11-25 08:05 | Outpatient (REF) | payer MEDICARE, OTHER, SELFPAY | LOC: HWRCS 08:05 | PROVIDERS: ATTENDING PHYSICIAN Internal Medicine Cardiovascular Disease; FAMILY PHYSICIAN Family Medicine | DX: I77.810 Thoracic aortic ectasia (principal); R06.02 Shortness of breath | CPT/HCPCS: 78452; 93017; A9500; J2785 ==

== ENCOUNTER 2024-12-30 09:00 | Outpatient (RCR) | payer MEDICARE, OTHER, SELFPAY | END 2025-01-07 10:49 | disposition home or self-care (01) | LOC: PURB 09:00 | PROVIDERS: ATTENDING PHYSICIAN Internal Medicine Critical Care Medicine; FAMILY PHYSICIAN Family Medicine | DX: J44.9 Chronic obstructive pulmonary disease, unspecified (principal) | CPT/HCPCS: G0237 ==

== ENCOUNTER → 2025-02-22 11:37 | Outpatient (REF) | payer MEDICARE, OTHER, SELFPAY | LOC: HWRAD 11:37 | PROVIDERS: ATTENDING PHYSICIAN Nurse Practitioner Family; FAMILY PHYSICIAN Family Medicine | DX: Z87.891 Personal history of nicotine dependence (principal) | CPT/HCPCS: 71271 ==